=== PATIENT | female | born 1975 | race Caucasian/White ===

== ENCOUNTER 2017-08-07 10:58 | Emergency (ER) | payer MEDICAID ==
[~2017-08-07] VITALS: Ht 157.5 cm; Wt 67.7 kg
[2017-08-07 11:02] VITALS: Ht 157.5 cm; Wt 67.7 kg
[2017-08-07] MEDS ORDERED: KETOROLAC 30 MG INJ IM STA (11:24)
[2017-08-07 11:31] LABS: URINE BLOOD (Dip) POC Negative (NEGATIVE)
[2017-08-07] MEDS ORDERED: HYDR-906 PO (11:37)
[2017-08-07] MEDS ORDERED: NAPR-260 PO (11:37)
[2017-08-07] MEDS ORDERED: CYCL-319 PO (11:37)
--- NOTE | 2017-08-07 12:24 | ERD ---
ER Documentation Chief Complaint Chief Complaint LOW BACK PAIN THAT RADIATES TO HER SUPRAPUBIC REGION OCCATIONAL DYSURIA HPI 42-year-old female complaining lower back pain. Patient states her pain is worse with rotational movements and bending over. Denies any abdominal pain. States she occasionally has dysuria. Denies hematuria. Denies flank pain. Has not taken medications for her symptoms. He has been going on for the last 3 weeks. Denies acute traumatic injury ROS All systems reviewed and are negative except as per history of present illness. Medications Home Meds Active Scripts Cyclobenzaprine Hcl* (Cyclobenzaprine Hcl*) 10 Mg Tablet, 10 MG PO TID, #15 TAB Prov:JOSE EUCEDA PA-C 08/07/17 Hydrocodone/Acetaminophen (Pryor 5-325 Tablet) 1 Each Tablet, 1 TAB PO Q6H Y for PAIN, #7 TAB Prov:JOSE EUCEDA PA-C 08/07/17 Naproxen* (Naprosyn*) 500 Mg Tablet, 500 MG PO BID Y for PAIN AND/OR INFLAMMATION, #30 TAB Prov:JOSE EUCEDA PA-C 08/07/17 Allergies Allergies: Coded Allergies: No Known Allergy (Unverified , 08/07/17) PMhx/Soc Medical and Surgical Hx: pt denies Medical Hx, pt denies Surgical Hx History of Surgery: No Anesthesia Reaction: No Hx Neurological Disorder: No Hx Respiratory Disorders: No Hx Cardiac Disorders: No Hx Psychiatric Problems: No Hx Miscellaneous Medical Probl: No Hx Alcohol Use: No Hx Substance Use: No Hx Tobacco Use: No Smoking Status: Never smoker Physical Exam Vitals Vital Signs Date Time Temp Pulse Resp B/P Pulse Ox O2 Delivery O2 Flow Rate FiO2 08/07/17 11:02 98.0 89 18 141/68 100 Physical Exam GENERAL: The patient is well-appearing, well-nourished, in no acute distress CHEST: Clear to auscultation bilaterally. There are no rales, wheezes or rhonchi. HEART: Regular rate and rhythm. No murmurs, clicks, rubs or gallops. No S3 or S4. ABDOMEN:Soft, nontender and nondistended. Good bowel sounds. No rebound or guarding. No gross peritonitis. No gross organomegaly or masses. No Do sign or McBurney point tenderness. BACK: No midline or flank tenderness. No CVA tenderness. Mild tenderness palpation of bilateral paraspinous muscles of the lumbar region EXTREMITIES: Equal pulses bilaterally. There is no peripheral clubbing, cyanosis or edema. No focal swelling or erythema. Full range of motion. Grossly neurovascularly intact. NEUROLOGIC: Alert and oriented. Cranial nerves II through XII intact. Motor strength in all 4 extremities with 5 out of 5 strength. Sensation grossly intact. Normal speech and gait. Babinski negative. DTR 2+ throughout. SKIN: There is no apparent rash or petechiae. The skin is warm and dry. Results 24 hrs Laboratory Tests Test 08/07/17 11:30 Bedside Urine pH (LAB) 7.0 Bedside Urine Protein (LAB) Negative Bedside Urine Glucose (UA) Negative Bedside Urine Ketones (LAB) Negative Bedside Urine Blood Negative Bedside Urine Nitrite (LAB) Negative Bedside Urine Leukocyte Esterase (L Negative Current Medications Medications (Trade) Dose Ordered Sig/Aston Route PRN Reason Start Time Stop Time Status Last Admin Dose Admin Ketorolac Tromethamine (Toradol) 30 mg ONCE STAT IM 08/07/17 11:24 08/07/17 11:25 DC 08/07/17 11:41 Procedures/MDM MDM: 42-year-old female complaining of neck pain. I have low suspicion for UTI or pyelonephritis. urine is within normal limits. A low suspicion for discitis , epidural abscess, or cauda equina. Patient's exam is non-concerning. Patient 's pain is likely associated with musculoskeletal pain. I will discharge her pain medication recommend close follow-up with primary care within 1-2 to days for close evaluation. Told if symptoms change or worsen to return to ER. Departure Diagnosis: Primary Impression: Back pain Condition: Stable Patient Instructions: Back Pain (Acute Or Chronic) Referrals: COMM[facility]ITY CLIN[facility] YOU HAVE RECEIVED A MEDICAL SCREENING EXAM AND THE RESULTS INDICATE THAT YOU DO NOT HAVE A CONDITION THAT REQUIRES URGENT TREATMENT IN THE EMERGENCY DEPARTMENT. FURTHER EVALUATION AND TREATMENT OF YOUR CONDITION CAN WAIT UNTIL YOU ARE SEEN IN YOUR DOCTORS OFFICE WITHIN THE NEXT 1-2 DAYS. IT IS YOUR RESPONSIBILITY TO MAKE AN APPOINTMENT FOR FOLOW-UP CARE. IF YOU HAVE A PRIMARY DOCTOR --you should call your primary doctor and schedule an appointment IF YOU DO NOT HAVE A PRIMARY DOCTOR YOU CAN CALL OUR PHYSICIAN REFERRAL HOTLINE AT IF YOU CAN NOT AFFORD TO SEE A PHYSICIAN YOU CAN CHOSE FROM THE FOLLOWING [facility] CLINICS [facility] [address] [facility] [address] [facility] [facility] [address] [facility] [address] [facility]. [facility] [address] [facility]. [facility] [address] Additional Instructions: FOLLOW UP WITH YOUR PRIMARY CARE PHYSICIAN TOMORROW.Return to this facility if you are not improving as expected. JOSE EUCEDA PA-C Aug 07, 2017 12:24
== END 2017-08-07 11:50 | disposition home or self-care (01) ==
LOC: FTE 10:58
DX: M54.9 Dorsalgia, unspecified (principal)
CPT/HCPCS: 81003; 96372; J1885; Z7502

== ENCOUNTER 2017-12-27 19:08 | Emergency (ER) | END 2017-12-28 02:17 | disposition left against medical advice (07) ==

== ENCOUNTER 2018-08-04 06:58 | Emergency (ER) | END 2018-08-04 08:44 | disposition home or self-care (01) ==